=== PATIENT | female | born 1990 | race Caucasian/White ===

== ENCOUNTER 2020-09-16 17:44 | Emergency (ER) | payer SELFPAY ==
[~2020-09-16] VITALS: Ht 160 cm; Wt 88.6 kg
[2020-09-16 18:02] LABS: BILIRUBIN,URINE NEGATIVE (NEG); CLARITY,URINE CLOUDY; COLOR,URINE YELLOW; NITRITE,URINE NEGATIVE (NEG); PROTEIN,URINE NEGATIVE (NEG-TRACE); UROBILINOGEN,URINE 0.2 mg/dL (0.2 mg/dL)
[2020-09-16 18:04] VITALS: BP 123/84
--- NOTE | 2020-09-16 18:08 | PHYS DOC ---
General Adult EDM: Chief Complaint: PAIN ON URINATION HPI: HPI: Patient is a 30 year old female who presents with burning with urination, vaginal itching, vaginal discharge x 2 weeks. States she has tried Monistat a couple of times without relief. She states she doesn't think she has any concern for STD's. Rates her discomfort a 8/10. Denies abdominal pain, nausea, vomiting, diarrhea, constipation, chest pain, fever, back pain, headache, dizziness. Review of Systems: Review of Systems: Constitutional: Denies fever or chills. [] Eyes: Denies change in visual acuity. [] HENT: Denies nasal congestion or sore throat. [] Respiratory: Denies cough or shortness of breath. [] Cardiovascular: Denies chest pain or edema. [] GI: Denies abdominal pain, nausea, vomiting, bloody stools or diarrhea. [] : + dysuria. + Vaginal itching + vaginal discharge [] Musculoskeletal: Denies back pain or joint pain. [] Integument: Denies rash. [] Neurologic: Denies headache, focal weakness or sensory changes. [] Endocrine: Denies polyuria or polydipsia. [] Lymphatic: Denies swollen glands. [] Psychiatric: Denies depression or anxiety. [] Heart Score: Risk Factors: Risk Factors: DM, Current or recent (<one month) smoker, HTN, HLP, family history of CAD, obesity. Risk Scores: Score 0 - 3: 2.5% MACE over next 6 weeks - Discharge Home Score 4 - 6: 20.3% MACE over next 6 weeks - Admit for Clinical Observation Score 7 - 10: 72.7% MACE over next 6 weeks - Early Invasive Strategies Physical Exam: PE: Constitutional: Well developed, well nourished, no acute distress, non-toxic appearance. [] HENT: Normocephalic, atraumatic, bilateral external ears normal, oropharynx moist, no oral exudates, nose normal. [] Eyes: PERRLA, EOMI, conjunctiva normal, no discharge. [] Neck: Normal range of motion, no tenderness, supple, no stridor. [] Cardiovascular:Heart rate regular rhythm, no murmur [] Lungs & Thorax: Bilateral breath sounds clear to auscultation [] Abdomen: Bowel sounds normal, soft, no tenderness, no masses, no pulsatile masses. [] Skin: Warm, dry, no erythema, no rash. [] Back: No tenderness, no CVA tenderness. [] Extremities: No tenderness, no cyanosis, no clubbing, ROM intact, no edema. [] Neurologic: Alert and oriented X 3, normal motor function, normal sensory function, no focal deficits noted. [] Psychologic: Affect normal, judgement normal, mood normal. [ Normal physical exam Current Patient Data: Labs: Laboratory Tests Test 09/16/20 17:55 POC Urine HCG, Qualitative Hcg negative (Negative) EKG: EKG: [] Radiology/Procedures: Radiology/Procedures: [] Course & Med Decision Making: Course & Med Decision Making Pertinent Labs and Imaging studies reviewed. (See chart for details) See HPI. Speaks in full complete sentences. Abdomen soft and nontender tender. Vital signs within normal limits. Ambulatory with steady gait. Skin pink warm and dry. No CVA tenderness. Urinalysis shows infection. I also sent off her urine for STD check for chlamydia and gonorrhea. Patient does not believe that she has any STDs at this time. She will wait to see what her results are. Patient will be placed on Keflex antibiotic. [] Dragon Disclaimer: [employer] Disclaimer: This electronic medical record was generated, in whole or in part, using a voice recognition dictation system. Departure Departure Impression: Primary Impression: UTI (urinary tract infection) Qualified Codes: N39.0 - Urinary tract infection, site not specified Disposition: 01 [place] HOME SELF CARE/HOMELESS Condition: STABLE Patient Instructions: Urinary Tract Infection Additional Instructions: Drink plenty of fluids. Follow-up with primary care provider if needed. Take medication as prescribed and with food. If you begin running a fever OR begin vomiting return to the emergency room. Scripts Cephalexin (KEFLEX) 500 Mg Capsule 1 CAP PO BID for 7 Days, #14 CAP 0 Refills Prov: JACKSON LEE APRN 09/16/20 JACKSON LEE APRN Sep 16, 2020 18:08
[2020-09-16 18:11] LABS: WBC,URINE >40 /HPF (0-4)
[2020-09-16 18:12] LABS: BACTERIA,URINE MANY /HPF (0-FEW)
[2020-09-16] MEDS ORDERED: CEPH-264 PO (18:28)
== END 2020-09-16 18:55 | disposition home or self-care (01) ==
LOC: ER 17:44
DX: N39.0 Urinary tract infection, site not specified (principal)
CPT/HCPCS: 81001; 81025; 87086; 87491; 87591; 99283